=== PATIENT | female | born 1995 | race African-American/Black ===

== ENCOUNTER 2020-09-10 22:27 | Emergency (ER) | payer OTHER ==
[~2020-09-10] VITALS: Ht 167.6 cm; Wt 88.6 kg
--- NOTE | 2020-09-10 22:40 | NUR ---
INITIAL PT CONTACT. PT PRESENTS TO ED C/O NAUSEA, VOMITING AND ABD PAIN X4 HOURS. PT DENIES ANY DIFFICULTY IN URINATION, INCREASED FREQUENCY OR CHANGES IN BOWEL MOVEMENTS. PT UPRIGHT ON DANNY JUDGE VSS. NOT CURRENTLY VOMITING, MILD NAUSEA PRESENTS. PT PROVIDED WARM BLANKETS. FRIEND AT BEDSIDE. CALL LIGHT AND BELONGINGS WITHIN REACH. FRIEND AT BEDSIDE. AWIATING ERP.
[2020-09-10] MEDS ORDERED: ONDANSETRON 2MG/ML, 2ML IVPush ONE (23:30)
[2020-09-10] MEDS ORDERED: SODIUM CHLORIDE FLUSH 10ML SYR IVF ONE (23:30)
[2020-09-10] MEDS ORDERED: MAALOX/HYOSCYAMINE/LIDOCAINE 45 ML BTL PO ONE (23:30)
[2020-09-10] MEDS ORDERED: SODIUM CHLORIDE 0.9% 1,000ML IVBOLUS ONE (23:30)
[2020-09-10] MEDS ORDERED: MAALOX/HYOSCYAMINE/LIDOCAINE 45 ML BTL ONE (23:39)
[2020-09-10] MEDS ORDERED: ONDANSETRON 2MG/ML, 2ML ONE (23:39)
[2020-09-10 23:51] LABS: BASOPHILS % (AUTO) 0 % (0-1); EOSINOPHILS % (AUTO) 1 % (1-7); LYMPHOCYTES % (AUTO) 3 % (22-44); MEAN CORPUSCULAR HEMOGLOBIN 30.3 pg (27.0-34.8); MEAN CORPUSCULAR HGB CONC 33.8 g/dL (32.4-35.8); MEAN PLATELET VOLUME 8.2 fL (7.4-10.4); MONOCYTES % (AUTO) 5 % (2-9); NEUTROPHILS % (AUTO) 91 % (42-75); PLATELET COUNT 189 x10^3/uL (130-400); RED BLOOD COUNT 4.82 x10^6/uL (3.82-5.3); RED CELL DISTRIBUTION WIDTH 13.4 % (9.6-15.2)
[2020-09-10 23:54] LABS: MD NO
[2020-09-11 00:02] LABS: ALANINE AMINOTRANSFERASE 23 U/L (12-78); ALBUMIN 3.6 g/dL (3.4-5.0); ANION GAP 5 mmol/L (5-15); CALCIUM 8.2 mg/dL (8.5-10.1); CHLORIDE 108 mmol/L (98-107); CREATININE 0.88 mg/dL (0.55-1.02)
[2020-09-11 00:07] LABS: ALKALINE PHOSPHATASE 66 U/L (45-117); BILIRUBIN,TOTAL 0.5 mg/dL (0.2-1.0); TOTAL PROTEIN 7.2 g/dL (6.4-8.2)
[2020-09-11] MEDS ORDERED: PROCHLORPERAZINE 5 MG/ML, 2ML ONE (00:45)
[2020-09-11] MEDS ORDERED: MORPHINE SULFATE 4 MG/ML, 1ML ONE ×2 (00:45→01:48)
[2020-09-11] MEDS ORDERED: PROCHLORPERAZINE 5 MG/ML, 2ML IVPush ONE (01:00)
[2020-09-11] MEDS: MORPHINE SULFATE 4 MG/ML, 1ML IVPush PRN ×2 (01:01→01:50)
--- NOTE | 2020-09-11 01:22 | NUR ---
PT SITTING UPRIGHT ON GURNEY, ABLE TO DOZE OFF. PT DENIES ANY NEEDS AT THIS TIME. 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 NO ADDITIONAL NEEDS AT THIS TIME. CALL LIGHT AND BELONGINGS WITHIN REACH.
--- NOTE | 2020-09-11 01:53 | NUR ---
break rn: pt medicaed for pain. Will monitor and then discharge. pt resting in nad. Call light in reach
[2020-09-11 02:26] VITALS: BP 117/82
--- NOTE | 2020-09-11 02:26 | NUR ---
Patient given discharge instructions and they have confirmed that they understand the instructions. Patient ambulatory with steady gait.
== END 2020-09-11 02:31 | disposition home or self-care (01) ==
LOC: ED 22:57
DX: R10.13 Epigastric pain (principal); R11.2 Nausea with vomiting, unspecified
CPT/HCPCS: 36415; 80053; 83690; 84703; 85025; 96361; 96374; 96375; 96376; 99284; J0780; J2270; J2405; J7030

== ENCOUNTER 2020-10-07 14:29 | Emergency (ER) | payer OTHER ==
[~2020-10-07] VITALS: Ht 167.6 cm; Wt 88.0 kg
--- NOTE | 2020-10-07 15:03 | NUR ---
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 PT STATES DOG WAS ROAMING AND GOT AGGRESSIVE. PT PLACED BANDAGE OVER WOUND TO CONTROL BLEEDING. PT A&O, RESPS EVEN AND UNLABORED, DANNY KARIMI.
[2020-10-07] MEDS ORDERED: DIPH,PERTUSS(ACELL),TET VAC/PF 0.5 ML IM-VACC ONE ×2 (15:30→15:43)
[2020-10-07 15:45] VITALS: BP 119/75
--- NOTE | 2020-10-07 16:11 | NUR ---
EDT AT BEDSIDE FOR WOUND CLEANING/IRRIGATION
[2020-10-07] MEDS ORDERED: NEOSPORIN OINT. PKT 1 PACKET ONE (16:19)
--- NOTE | 2020-10-07 16:37 | NUR ---
DISCHARGE INSTRUCTIONS REVIEWED, PT VERBALIZED UNDERSTANDING. AMBULATORY TO DISCHARGE WITH STEADY GAIT, NO COMPLAINTS AT TIME OF DISCHARGE.
== END 2020-10-07 16:39 | disposition home or self-care (01) ==
LOC: ED 14:53
DX: S81.851A Open bite, right lower leg, initial encounter (principal); W54.0XXA Bitten by dog, initial encounter; Y93.89 Activity, other specified; Y92.89 Other specified places as the place of occurrence of the external cause; Y99.8 Other external cause status
CPT/HCPCS: 90471; 90715; 99283

== ENCOUNTER 2020-11-17 16:51 | Emergency (ER) | payer OTHER ==
[~2020-11-17] VITALS: Ht 167.6 cm; Wt 86.3 kg
[2020-11-17 16:55] VITALS: BP 119/61
[2020-11-17] MEDS ORDERED: IBUPROFEN 600 MG TABLET ONE (17:20)
[2020-11-17] MEDS ORDERED: ACETAMINOPHEN 500 MG TABLET ONE (17:20)
[2020-11-17] MEDS ORDERED: IBUPROFEN 200 MG TABLET PO ONE (17:30)
[2020-11-17] MEDS ORDERED: ACETAMINOPHEN 500 MG TABLET PO ONE (17:30)
== END 2020-11-17 18:14 | disposition home or self-care (01) ==
LOC: ED 17:50
DX: R51.9 Headache, unspecified (principal); V49.49XA Driver injured in collision with other motor vehicles in traffic accident, initial encounter; Y93.89 Activity, other specified; Y92.89 Other specified places as the place of occurrence of the external cause; Y99.8 Other external cause status
CPT/HCPCS: 99283